=== PATIENT | female | born 1955 | race Caucasian/White ===

== ENCOUNTER 2017-03-14 12:23 | Emergency (ER) | payer SELFPAY ==
[~2017-03-14] VITALS: Ht 165.1 cm; Wt 100.0 kg
[~2017-03-14 12:23] MED LIST: NOCURR
[2017-03-14 12:42] LABS: GLUCOSE,POINT OF CARE 278 MG/DL (70-110)
[2017-03-14] MEDS ORDERED: IBUP-2070 PO (12:50)
[2017-03-14 16:05] LABS: BASOPHILS # (AUTO) 0.04 K/uL (0.00-0.20); BASOPHILS % (AUTO) 0.3 % (0.0-2.0); EOSINOPHILS # (AUTO) 0.09 K/uL (0.00-0.70); EOSINOPHILS % (AUTO) 0.77 % (1.0-6.0); HEMATOCRIT 40.1 % (36-46); HEMOGLOBIN 13.6 g/dL (12.0-16.0); LYMPHOCYTES # (AUTO) 2.8 K/uL (1.0-4.8); LYMPHOCYTES % (AUTO) 22.7 % (22.0-44.0); MEAN CORPUSCULAR HEMOGLOBIN 29.1 pg (26.0-34.0); MEAN CORPUSCULAR HGB CONC 33.8 G/dL (31.0-37.0); MEAN CORPUSCULAR VOLUME 86 fL (80-100); MONOCYTES # (AUTO) 0.9 K/uL (0.1-1.0); MONOCYTES % (AUTO) 7.2 % (2.0-9.0); NEUTROPHILS # (AUTO) 8.4 K/uL (1.8-7.7); NEUTROPHILS % (AUTO) 69.1 % (40.0-70.0); PLATELET COUNT (AUTO) 317 K/uL (150-450); RED BLOOD CELL COUNT(AUTO) 4.66 MIL/uL (4.00-5.20); RED CELL DISTRIBUTION WIDTH 14.1 % (11.5-14.5); WHITE BLOOD COUNT (AUTO) 12.2 K/uL (4.5-11.0)
[2017-03-14 16:13] LABS: ANION GAP 9 mmol/L (8-16); CALCIUM, TOTAL 9.5 mg/dL (8.8-10.5); CARBON DIOXIDE 28 mmol/L (22-29); CHLORIDE 101 mmol/L (98-107); GLOMERULAR FILTR. RATE CALC > 60 mL/min (>60); SODIUM SERUM 138 mmol/L (136-145); UREA NITROGEN, BLOOD 17 mg/dL (7-18)
[2017-03-14] MEDS ORDERED: SODIUM CHLORIDE 0.9% 100 ML ONE (17:19)
[2017-03-14] MEDS ORDERED: IOVERSOL 320 MG/ML 100 ML VIAL ONE (17:20)
[2017-03-14 20:49] VITALS: BP 169/88
== END 2017-03-14 21:08 | disposition home or self-care (01) ==
LOC: EMS 12:24
DX: R22.1 Localized swelling, mass and lump, neck (principal); R22.0 Localized swelling, mass and lump, head; E11.65 Type 2 diabetes mellitus with hyperglycemia; M79.1 Myalgia; I10 Essential (primary) hypertension
CPT/HCPCS: 36415; 70491; 80048; 82962; 85025; 99285; J7050; Q9967